=== PATIENT | female | born 1950 | race Caucasian/White ===

== ENCOUNTER 2017-04-21 15:03 | Emergency (ER) | payer OTHER, MEDICARE ==
[2017-04-21 15:12] VITALS: BP 113/54
--- NOTE | 2017-04-21 15:36 | UC ---
Lower Extremity/Ankle HPI - HPI Summary HPI Summary: 67 YEAR OLD FEMALE PRESENTS WITH COMPLAINS OF TWISTING LEFT ANKLE AFTER A FALL. - History of Current Complaint Chief Complaint: UCLowerExtremity Stated Complaint: TWISTED ANKLE Time Seen by Provider: 04/21/17 15:35 Hx Obtained From: Patient Onset/Duration: Sudden Onset Severity Initially: Moderate Severity Currently: Moderate Pain Scale Used: 0-10 Numeric - 7 Aggravating Factor(s): Standing, Ambulation Alleviating Factor(s): Rest, Elevation, Ice - Allergies/Home Medications Allergies/Adverse Reactions: Allergies Allergy/AdvReac Type Severity Reaction Status Date / Time Penicillins Allergy Unknown Unknown Verified 04/21/17 15:13 Reaction Details Ciprofloxacin [From Cipro] AdvReac GI Upset Verified 04/21/17 15:13 Home Medications: Home Medications Dofetilide CAP* [Tikosyn CAP*] 1 cap PO BID 04/21/17 [History Confirmed 04/21/17 ] PMH/Surg Hx/FS Hx/Imm Hx Previously Healthy: Yes - Surgical History Surgical History: Yes Surgery Procedure, Year, and Place: [place]ST[place], BLAD[place] [facility] [place]SE [place] RIGHT LEG 1994. [place] [facility] [place] Family History Known Family History: Positive: Cardiac Disease - Mother - CAD, Hypertension - Mother -- HTN and CHF, Respiratory Disease - Father -- PE, heavy smoker, Other - Positive breast CA - Social History Alcohol Use: None Alcohol Amount: couple glasses of wine per month Substance Use Type: None Smoking Status (MU): Former Smoker Have You Smoked in the Last Year: No When Did the Patient Quit Smoking/Using Tobacco: 40 plus years ago - Immunization History Most Recent Influenza Vaccination: Not recent Most Recent Tetanus Shot: Unknown Most Recent Pneumonia Vaccination: In the past Review of Systems Constitutional: Negative Skin: Negative Eyes: Negative ENT: Negative Respiratory: Negative Cardiovascular: Negative Gastrointestinal: Negative Genitourinary: Negative Motor: Negative Neurovascular: Negative Musculoskeletal: Other: - LEFT ANKLE SWELLING/PAIN Neurological: Negative Psychological: Negative All Other Systems Reviewed And Are Negative: Yes Physical Exam Triage Information Reviewed: Yes Vital Signs: Initial Vital Signs Temp 36.9 C 04/21/17 15:08 Pulse 74 04/21/17 15:08 Resp 12 04/21/17 15:08 BP 113/54 04/21/17 15:08 Pulse Ox 99 04/21/17 15:08 Eye Exam: Normal ENT Exam: Normal Dental Exam: Normal Neck exam: Normal Neck: Positive: 1 Respiratory Exam: Normal Cardiovascular Exam: Normal Abdominal Exam: Normal Musculoskeletal: Positive: Other: - LEFT ANKLE SWELLING/PAIN Neurological Exam: Normal Psychological Exam: Normal Skin Exam: Normal Lower Extremity Course/Dx - Differential Dx/Diagnosis Provider Diagnoses: LEFT ANKLE SWELLING/PAIN/SPRAIN Discharge - Discharge Plan Condition: Stable Disposition: HOME Prescriptions: Acetaminophen [Tylenol] 650 mg PO Q6H PRN #100 cap PRN Reason: Pain Patient Education Materials: Foot Sprain (ED) Referrals: Eder Bernstein MD [Medical Doctor] - Bertin Doshi MD [Primary Care Provider] -
--- NOTE | 2017-04-21 16:28 | RAD ---
INDICATION: Left ankle injury COMPARISON: None TECHNIQUE: AP, lateral, and oblique views were obtained. FINDINGS: There is no acute fracture or dislocation. There is a suspected joint effusion. IMPRESSION: NO ACUTE FRACTURE.
--- NOTE | 2017-04-21 16:30 | RAD ---
INDICATION: Left foot injury COMPARISON: None TECHNIQUE: AP, lateral, and oblique views were obtained. FINDINGS: The bony structures, joint spaces, and soft tissues are normal for age. IMPRESSION: NEGATIVE EXAMINATION.
== END 2017-04-21 16:59 | disposition home or self-care (01) ==
LOC: UCEAST 15:03
DX: S93.402A Sprain of unspecified ligament of left ankle, initial encounter (principal); X50.1XXA Overexertion from prolonged static or awkward postures, initial encounter; Y92.9 Unspecified place or not applicable; W19.XXXA Unspecified fall, initial encounter; Z87.891 Personal history of nicotine dependence
CPT/HCPCS: 99213; G0463